=== PATIENT | male | born 1955 | race Caucasian/White ===

== ENCOUNTER 2020-03-07 01:32 | Emergency (ER) | payer MEDICARE, OTHER ==
[2020-03-07 01:55] LABS: BASOPHIL 0.7 % (0-2); EOSINOPHIL 5.4 % (0-7); LYMPHOCYTE 21.1 % (15-48); MCH 27.3 pg (25.0-31.0); MCV 85.2 fL (78.0-100.0); MPV 10.1 fL (6.0-9.5); NEUTROPHIL 49.2 % (41-80); NRBC 0; PLT 234 K/uL (150-400); RBC 5.87 M/uL (4.70-6.00); RDW 16.1 % (11.5-14.0); WBC 5.7 K/uL (4.0-10.5)
[2020-03-07 02:00] LABS: MONOCYTE 23.4 % (0-12)
[2020-03-07 02:18] LABS: ALBUMIN 3.8 g/dL (3.4-5.0); BILIRUBIN - TOTAL 0.3 mg/dL (0.2-1.0); BUN/CREAT RATIO (CALC) 13.8 RATIO; CREATININE 1.23 mg/dL (0.67-1.17); GLOBULIN (CALCULATION) 3.6 g/dL; MAGNESIUM 2.1 mg/dL (1.8-2.4); POTASSIUM 3.7 mmol/L (3.5-5.1); TOTAL PROTEIN 7.4 g/dL (6.4-8.2)
[2020-03-07 03:09] LABS: BILIRUBIN NEGATIVE (NEGATIVE); BLOOD 3+ Ery/uL (NEGATIVE); COLOR YELLOW (YELLOW); GLUCOSE (U) 3+ mg/dL (NORMAL); LEUKOCYTES NEGATIVE Leu/uL (NEGATIVE); NITRITE NEGATIVE (NEGATIVE); PROTEIN NEGATIVE (NEGATIVE); UROBILINOGEN 0.2 mg/dL (0.2-1.0); pH 5.5 (5.0-9.0)
[2020-03-07 03:10] LABS: CLARITY HAZY (CLEAR)
[2020-03-07 03:13] LABS: SQUAMOUS EPITHELIAL CELLS RARE; URINARY RBC 20-50
[2020-03-07] MEDS ORDERED: ENDOCET 7.5-321 EACH PO (03:47)
[2020-03-07] MEDS ORDERED: FLOMAX0.4 MG PO (03:47)
[2020-03-07] MEDS ORDERED: ONDANSETRON ODT4 MG PO (03:47)
== END 2020-03-07 03:55 | disposition home or self-care (01) ==
LOC: FER 01:32
PROVIDERS: Emergency Medicine
DX: N13.2 Hydronephrosis with renal and ureteral calculous obstruction (principal); Z87.442 Personal history of urinary calculi
CPT/HCPCS: 36415; 80053; 81001; 83690; 83735; 85025; J1170; J1885; J2405; J7030